=== PATIENT | male | born 1990 | race Caucasian/White ===

== ENCOUNTER 2020-12-07 21:07 | Emergency (ER) | payer OTHER ==
[~2020-12-07] VITALS: Ht 177.8 cm; Wt 88.5 kg
[2020-12-07 21:07] VITALS: BP 132/64
[2020-12-07] MEDS ORDERED: HYDR-4209 PO (22:38)
[2020-12-07] MEDS ORDERED: IBUPROFEN 400 MG TABLET ONE (22:39)
[2020-12-07] MEDS ORDERED: HYDROCODONE/APAP 10/325MG TABLET ONE (22:39)
[2020-12-07] MEDS ORDERED: ONDANSETRON 4 MG TAB.RAPDIS ONE (22:40)
[2020-12-07] MEDS ORDERED: HYDROCODONE/APAP 10/325MG TABLET PO ONE (23:00)
[2020-12-07] MEDS ORDERED: IBUPROFEN 400 MG TABLET PO ONE (23:00)
[2020-12-07] MEDS ORDERED: ONDANSETRON 4 MG TAB.RAPDIS SL ONE (23:00)
== END 2020-12-07 22:51 | disposition home or self-care (01) ==
LOC: ER 21:12
DX: S39.012A Strain of muscle, fascia and tendon of lower back, initial encounter (principal); M79.605 Pain in left leg; M79.604 Pain in right leg; V03.99XA Pedestrian with other conveyance injured in collision with car, pick-up truck or van, unspecified whether traffic or nontraffic accident, initial encounter; Y93.01 Activity, walking, marching and hiking; Y92.89 Other specified places as the place of occurrence of the external cause; Y99.8 Other external cause status
CPT/HCPCS: 99284; Q0162